=== PATIENT | male | born 1970 | race Caucasian/White ===

== ENCOUNTER 2021-03-31 11:05 | Emergency (ER) | payer MEDICARE, OTHER ==
[2021-03-31 11:40] LABS: HEMOGLOBIN 14.4 gm/dl (14.0-17.5); RED BLOOD COUNT 4.63 M/UL (4.20-5.50); WHITE BLOOD COUNT 8.9 K/UL (4.5-11.0)
[2021-03-31 12:09] LABS: BUN/CREATININE RATIO 7 (0-10)
== END 2021-03-31 12:54 | disposition home or self-care (01) ==
LOC: ER1 11:05
PROVIDERS: Physician Assistant
DX: R19.7 Diarrhea, unspecified (principal); M79.10 Myalgia, unspecified site; M06.9 Rheumatoid arthritis, unspecified; Z87.442 Personal history of urinary calculi; Z20.822 Contact with and (suspected) exposure to COVID-19
CPT/HCPCS: 71045; 80053; 81001; 82550; 82553; 83615; 83874; 84484; 85025; 93005; 99284; J7030; U0002